=== PATIENT | male | born 1970 | race African-American/Black ===

== ENCOUNTER → 2018-09-09 | Outpatient (CLI) | payer MEDICARE, OTHER ==
[2015-02-03 15:00] VITALS: BP 113/74
[~2018-09-09] MED LIST: IOHEXOL 300 MG/ML 100ML VIAL. IV ONE
--- NOTE | 2018-09-09 10:03 | RAD ---
CT neck with intravenous contrast History: Right posterior neck nodule. Comparison: None. Technique: CT of the neck was performed after the administration of intravenous contrast, 75 mL Omnipaque-300. A BB was placed on the posterior right neck in area of clinical interest. Exposure: One or more of the following individualized dose reduction techniques were utilized for this examination: 1. Automated exposure control 2. Adjustment of the mA and/or kV according to patient size 3. Use of iterative reconstruction technique Findings: Palpable lump corresponds to a fat-containing lesion in the subcutaneous soft tissues just superficial to the posterior neck musculature. Lesion measures 2.4 x 1.7 cm in maximum dimension x 1.4 cm in craniocaudal dimension and is compatible with small lipoma. Major vessels of the neck enhance appropriately. Bilateral parotid and submandibular glands appear symmetric. Thyroid appears diffusely enlarged and there are likely several nodules. Airway is patent. Impression: 1. Palpable lump the posterior right neck corresponds to 2.4 x 1.7 x 1.4 cm lipoma. 2. Multinodular goiter. Electronically signed by: Brendan Elizondo MD (09/09/2018 9:59 AM) [place] [id number]
== END | disposition home or self-care (01) ==
LOC: CT 08:19
PROVIDERS: ATTEND Family Medicine
DX: R22.1 Localized swelling, mass and lump, neck (principal); E04.2 Nontoxic multinodular goiter
CPT/HCPCS: 70491

== ENCOUNTER → 2019-05-07 | Outpatient (CLI) | payer OTHER ==
[2015-02-03 15:00] VITALS: BP 113/74
--- NOTE | 2019-05-07 16:31 | KCIC ---
KNEE RIGHT 3V History: Right knee pain. Pain for 2 weeks.. Review standing images are obtained. Mild narrowing of the medial joint compartment. Small degenerative osteophytes about the knee. Mild enthesopathy at the patella and tibial tubercle. Fullness in the suprapatellar region suggesting joint IMPRESSION: 1. Mild degenerative changes. 2. Joint effusion. Electronically signed by: Brendan Deluca MD (05/07/2019 4:29 PM) [facility]
== END | disposition home or self-care (01) ==
LOC: KCIC 13:30
PROVIDERS: ATTEND Family Medicine
DX: M17.11 Unilateral primary osteoarthritis, right knee (principal); M25.761 Osteophyte, right knee; M25.461 Effusion, right knee; M76.9 Unspecified enthesopathy, lower limb, excluding foot
CPT/HCPCS: 73562

== ENCOUNTER → 2020-01-07 | Outpatient (CLI) | payer MEDICARE, OTHER ==
[2015-02-03 15:00] VITALS: BP 113/74
--- NOTE | 2020-01-07 08:52 | RAD ---
Bilateral lower extremity arterial ultrasound History: Gastrocnemius muscle strain. Possible tendon tear. Findings: Multiple grayscale, color, and duplex spectral analysis sonographic images were acquired of the lower extremity arteries bilaterally. There are no previous similar exams. Complex, hypoechoic fluid collection in the left posterior calf region outside of the gastrocnemius muscle measuring 6.7 cm longitudinal x 4.4 cm transverse x 1.4 cm anteroposterior. Velocities in cm/sec: Left Common femoral artery 140 Profunda femoris artery 49 Proximal SFA 112 Mid SFA 111 Distal SFA 109 Popliteal artery 71 Anterior tibial artery 87 Dorsalis pedis artery 84 Posterior tibial artery 107 Peroneal artery 73 Triphasic flow is noted involving the left lower extremity arterial vasculature. No significant plaque identified involving arterial vasculature. Impression: No hemodynamically significant left lower extremity arterial stenosis. Fluid collection involving the left calf gastrocnemius region. Findings may represent hematoma as result of tear. Correlate clinically determining further assessment. Electronically signed by: Holden Romeo MD (01/07/2020 8:49 AM) [id number]
== END | disposition home or self-care (01) ==
LOC: US 07:08
PROVIDERS: ATTEND Family Medicine
DX: S86.112A Strain of other muscle(s) and tendon(s) of posterior muscle group at lower leg level, left leg, initial encounter (principal); X58.XXXA Exposure to other specified factors, initial encounter; Y93.89 Activity, other specified; Y92.89 Other specified places as the place of occurrence of the external cause; Y99.8 Other external cause status
CPT/HCPCS: 93926

== ENCOUNTER → 2020-06-24 | Outpatient (CLI) | payer MEDICAID, MEDICARE, OTHER ==
[2015-02-03 15:00] VITALS: BP 113/74
--- NOTE | 2020-06-24 12:49 | KCIC ---
EXAM: Left knee, 4 views. HISTORY: Pain. COMPARISON: 05/07/2020 FINDINGS: 4 views of the left knee are obtained. There is left medial compartment joint space narrowing and moderate marginal spurring. There is also left lateral and patellofemoral compartment spurring. There is a suspected intra-articular osteophyte along the anterior tibial plateau. There is a small joint effusion. There is no acute fracture, dislocation or subluxation. IMPRESSION: 1. Moderate medial compartment predominant osteoarthritis of the left knee with a small joint effusion. 2. No acute osseous finding. Electronically signed by: Shameka Hay MD (06/24/2020 12:47 PM) [id number]
== END | disposition home or self-care (01) ==
LOC: KCIC 10:02
PROVIDERS: ATTEND Family Medicine
DX: M17.12 Unilateral primary osteoarthritis, left knee (principal); M25.462 Effusion, left knee
CPT/HCPCS: 73564

== ENCOUNTER → 2021-01-12 | Outpatient (CLI) | payer MEDICARE, OTHER ==
[2015-02-03 15:00] VITALS: BP 113/74
--- NOTE | 2021-01-12 17:04 | KCIC ---
L spine 5 views INDICATION: Acute left-sided low back pain and left sciatica for 2 days. No known injury. COMPARISON: None. FINDINGS: Standing AP, standing bilateral oblique, standing lateral and standing coned-down lateral views of th e lumbar spine were obtained. They show 5 lumbar type vertebrae with a transitional S1. Vertebral body heights are preserved. No ac [place] fracture or aggressive appearing bony lesions are seen. There is underlying multilevel mild lumba r spinal degenerative changes in the disks and facets, resulting in most mild bilateral L5-S1 foramin al narrowing. The soft tissues are unremarkable. Sacroiliac joints and visualized hips are unremarkab le. IMPRESSION: Mild lumbar spinal degenerative changes. No fracture or malalignment. Electronically signed by: Kar Saxena MD (01/12/2021 5:02 PM) [id number]
== END ==
LOC: KCIC 11:12
PROVIDERS: ATTEND Family Medicine
DX: M47.816 Spondylosis without myelopathy or radiculopathy, lumbar region (principal); M48.07 Spinal stenosis, lumbosacral region
CPT/HCPCS: 72110

== ENCOUNTER 2021-03-31 08:27 | Day surgery (SDC) | payer MEDICARE, OTHER ==
[~2021-03-31] VITALS: Ht 177.8 cm; Wt 123.0 kg
[~2021-03-31 08:27] MED LIST changes: +ACETAMINOPHEN 500 MG TABLET PO ONE; +ALBU1.25 NEB; +ALLO300T PO; +CELE200C PO; +FLUT9.9S NS; +HYDR-2763 PO; +HYDROmorphone 2 MG/ML VIAL IVP PRN; -IOHEXOL 300 MG/ML 100ML VIAL. IV ONE; +IV RINGERS,LACTATED 1000ML 1,000 ML IV SCH; +LORA10TA3 PO; +MORPHINE SULFATE 2 MG/ML VIAL. IVP PRN; +MULT-659 PO; +OMEP40CA7 PO; +PRED-220 PO; +PROCHLORPERAZINE 10 MG/2 ML VIAL. IVP PRN; +SPIR25TA5 PO; +VENTOLIN HFA18 GM INH; +ceFAZolin SODIUM 3 GM in IV DEXTROSE 5% 100ML 100 ML IV PRN; +fentaNYL PF VIAL 100 MCG/2 ML VIAL IVP PRN
[2021-03-31] MEDS ORDERED: ACETAMINOPHEN 500 MG TABLET PO ONE (08:30)
[2021-03-31 08:50] VITALS: BP 127/77
[2021-03-31] MEDS ORDERED: fentaNYL PF VIAL 100 MCG/2 ML VIAL ONE (09:13)
[2021-03-31] MEDS ORDERED: LIDOCAINE 2% PF 5 ML VIAL. ONE (09:13)
[2021-03-31] MEDS ORDERED: PROPOFOL 10 MG/ML (20ML) VIAL. IV ONE (09:13)
[2021-03-31] MEDS ORDERED: ROCURONIUM 50 MG/5 ML VIAL. ONE (09:20)
[2021-03-31] MEDS ORDERED: MIDAZOLAM HCL/PF 2 MG/2 ML VIAL. ONE (10:03)
[2021-03-31] MEDS ORDERED: BUPIVACAINE-EPI 0.25% 30 ML VIAL KIT. ONE (10:03)
[2021-03-31] MEDS ORDERED: DEXAMETHASONE SOD PHOS 4 MG/ML VIAL ONE (10:37)
[2021-03-31] MEDS ORDERED: ONDANSETRON PF 4 MG/2 ML VIAL. ONE (10:37)
[2021-03-31] MEDS ORDERED: NEOSTIGMINE METHYLSULFATE 5 MG/5 ML SYRINGE. ONE (10:40)
[2021-03-31] MEDS ORDERED: GLYCOPYRROLATE 1 MG/5 ML VIAL. ONE (10:40)
[2021-03-31] MEDS ORDERED: SEVOFLURANE 61 TO 120 MINUTES. IH ONE (10:47)
--- NOTE | 2021-03-31 11:00 | PDOC4 ---
Operative Note Operative Note Date: March [id number] at 1058 Preoperative diagnosis: Posterior neck mass Postoperative diagnosis: Same Procedure: Excision of posterior neck mass Surgeon: Jonathan Specimen: Neck mass Dictation: Patient is a 50-year-old gentleman is complained of a mass on his posterior neck that is been increasing in size and becoming somewhat painful. Procedure of excision was explained to the patient in detail risk benefits were also discussed including bleeding infection alternatives to this procedure also discussed with patient who seemed to understand and gave a verbal written conse nt to have the procedure performed. Patient was taken to the operating room placed in the supine position general anesthesia was initiated once patient was sleeping abated was repositioned in prone positioning. His posterior neck was prepped and draped usual sterile fashion using ChloraPrep. An area over the mass was injected with quarter percent Marcaine with epinephrine incision was made with a 10 blade scalpel. This was carried down through the subcutaneous tissue using electrocautery right hemostasis the mass was excised appeared to be a lipomatous mass 4 x 4 cm with a 1 cm margin. Specimen was sent to pathology the wound was then closed in 2 layers the deep layer running 3-0 Vicryl and the skin was reapproximated for subcuticular Monocryl Mastisol Steri-Strips and island dressings were applied. Patient was repositioned and in the supine positioning awakened and extubated in the operating room taken to recovery in stable condition all sponge instrument needle counts listed as correct estimated blood loss 5 mL JOHN VALDEZ MD Mar 31, 2021 11:00
--- NOTE | 2021-03-31 11:03 | DISCH ---
DISCHARGE INSTRUCTIONS Condition on Discharge Condition on Discharge: Stable Activity After Discharge Activity Instructions for Disc: Activity as tolerated Other activity instructions: May shower in 24 hours Diet after Discharge Diet after Discharge: Regular Contacting the DRYolie after DC Call your doctor for: If your condition worsens Follow-Up Follow up with: Dr. Valdez in 2 weeks JOHN VALDEZ MD Mar 31, 2021 11:03
[2021-03-31] MEDS ORDERED: HYDR-2759 PO (11:27)
[2021-03-31] MEDS ORDERED: HYDROcodone/APAP 5/325MG 1 TAB TABLET PO ONE ×2 (11:30)
[2021-03-31 11:55] VITALS: BP 128/81
--- NOTE | 2021-04-04 19:18 | PATHOLOGY ---
[facility] Accession Number: [id number] . 01 Material submitted: . neck - NECK MASS . 01 Clinical history: . EXCISION RIGHT POSTERIOR NECK MASS LIPOMA . 02 Diagnosis: Segments of adipose tissue, right posterior neck mass excision: - Lipoma. (JPM/db; 04/04/2021) LBQ 04/04/2021 1124 Local . 02 Electronically signed: . Richmond Boswell MD, Pathologist NPI- [id number] . 01 Gross description: . Fixative: Formalin Labeled: Neck mass Specimen received: Fragmented Dimensions: in aggregate 7.1 x 4.3 x 2.4 cm External surface: Roughened, nick yellow lobular Cut surface: Nick yellow lobular without hemorrhage or necrosis grossly identified . Respiratory Therapy Instructor sections are submitted in A1-A3. ([facility]; 04/01/2021) GZA/GZA 04/01/2021 0915 Local . 02 Pathologist provided ICD-10: D17.0 . 02 CPT . 009706 Specimen Comment: A courtesy copy of this report has been sent to [phone], [phone] Specimen Comment: [phone] Specimen Comment: Report sent to / DR LANE Performed at: 01 [facility] [address], [place], [place] [id number] MD Barry Rausch MD Phone: [phone] Performed at: 02 [facility] [place] [address] [place], [place] [id number] MD Richmond Boswell MD Phone: [phone]
== END 2021-03-31 12:25 | disposition home or self-care (01) ==
LOC: SURG 08:27
PROVIDERS: ATTEND Surgery
DX: R22.1 Localized swelling, mass and lump, neck (principal); D17.0 Benign lipomatous neoplasm of skin and subcutaneous tissue of head, face and neck; I10 Essential (primary) hypertension; J45.909 Unspecified asthma, uncomplicated; G47.30 Sleep apnea, unspecified; M19.90 Unspecified osteoarthritis, unspecified site; Z79.899 Other long term (current) drug therapy; Z98.890 Other specified postprocedural states
CPT/HCPCS: 21552; 88304; A4364; A4930; A6402; J1100; J2250; J2405; J2704; J2710; J3010; J3490; A4452

== ENCOUNTER → 2021-06-30 | Outpatient (CLI) | payer MEDICARE, OTHER ==
[~2021-06-30] MED LIST changes: -ACETAMINOPHEN 500 MG TABLET PO ONE; +HYDR-2759 PO; -HYDROmorphone 2 MG/ML VIAL IVP PRN; -IV RINGERS,LACTATED 1000ML 1,000 ML IV SCH; -MORPHINE SULFATE 2 MG/ML VIAL. IVP PRN; -PROCHLORPERAZINE 10 MG/2 ML VIAL. IVP PRN; -ceFAZolin SODIUM 3 GM in IV DEXTROSE 5% 100ML 100 ML IV PRN; -fentaNYL PF VIAL 100 MCG/2 ML VIAL IVP PRN
--- NOTE | 2021-06-30 16:02 | RAD ---
EXAM: Bilateral lower extremity venous Doppler sonogram. HISTORY: Pain and swelling. TECHNIQUE: Vazquez scale and color Doppler sonographic evaluation of the bilateral lower extremity veins with spectral waveform analysis was performed. FINDINGS: There is normal color flow, normal compressibility and there are normal spectral waveforms in the common femoral, superficial femoral, popliteal, posterior tibial and greater saphenous veins. IMPRESSION: No Doppler evidence of lower extremity deep venous thrombosis. Electronically signed by: Shameka Hay MD (06/30/2021 3:59 PM) [id number]
== END ==
LOC: US 15:06
PROVIDERS: ATTEND Physical Medicine & Rehabilitation
DX: M79.604 Pain in right leg (principal); M79.605 Pain in left leg; M79.89 Other specified soft tissue disorders
CPT/HCPCS: 93970

== ENCOUNTER → 2021-07-05 | Outpatient (CLI) | payer MEDICARE, OTHER ==
--- NOTE | 2021-07-05 14:00 | KCIC ---
Examination: MRI of the left shoulder without contrast HISTORY: Left shoulder pain COMPARISON: None available TECHNIQUE: Multiplanar, multisequence MR imaging of the left shoulder performed. Exposure: One or more of the following individualized dose reduction techniques were utilized for magdalena s examination: 1. Automated exposure control 2. Adjustment of the mA and/or kV according to patient size 3. Use of iterative reconstruction technique FINDINGS: The long head of the biceps tendon within the bicipital groove. The attachment of the long head the biceps tendon to the superior labral anchor grossly appears intact. The attachment of subscapularis t endon grossly appears intact. Moderate increased T2 signal with the Hill-Sachs lesion identified in t he posterior lateral humerus head likely recent dislocation. Moderate increased T2 signal identified in the supraspinatus and infraspinatus tendons likely tendino sis. The muscle bulk grossly appears unremarkable Small amount of fluid identified in subacromial subdeltoid bursa. There is increased signal with tear of the inferior glenohumeral ligament at its glenoid attachment with possible tiny darrell of bone fro m the anterior inferior glenoid likely bony Bankart with surrounding increased T2 signal/edema. The v isualized labrum demonstrates signal identified in the superior labrum extending anteriorly and poste riorly Small shoulder joint effusion. IMPRESSION: 1. Tear of the inferior glenohumeral ligament at its glenoid attachment with possible tiny darrell of bone from the anterior inferior glenoid likely bony Bankart with surrounding increased T2 signal/jony a. 2. Moderate increased T2 signal with the Hill-Sachs lesion identified in the posterior lateral humer us head likely recent dislocation. 3. Moderate tendinosis of the supraspinatus and infraspinatus tendons. Small amount of fluid identif ied in subacromial subdeltoid bursa. 4. Tear of the superior labrum extending anteriorly and posteriorly. Electronically signed by: Gaston Hernandez MD (07/05/2021 12:40 PM) [id number]
== END ==
LOC: KCIC MRI 10:44
PROVIDERS: ATTEND Physical Medicine & Rehabilitation
DX: S43.432A Superior glenoid labrum lesion of left shoulder, initial encounter (principal); M25.412 Effusion, left shoulder; M75.102 Unspecified rotator cuff tear or rupture of left shoulder, not specified as traumatic; X58.XXXA Exposure to other specified factors, initial encounter; Y93.89 Activity, other specified; Y92.89 Other specified places as the place of occurrence of the external cause; Y99.8 Other external cause status
CPT/HCPCS: 73221

== ENCOUNTER → 2021-07-14 | Outpatient (CLI) | payer MEDICARE, OTHER ==
--- NOTE | 2021-07-15 11:43 | KCIC ---
EXAMINATION: MRI LEFT LOWER EXTREMITY JOINT WITHOUT INDICATIONS: Known hamstrings tear. Medial and lateral knee pain and swelling. TECHNIQUE: Multiplanar multisequence MRI of the left knee was obtained without contrast. COMPARISON: None. FINDINGS: MENISCI: There is a complex tear of the medial meniscus extending from the near the posterior root-h orn junction through the body. There is complete extrusion of the torn meniscal body tissue into the medial recess. The lateral meniscus is intact. LIGAMENTS: The anterior and posterior cruciate ligaments are intact. The medial collateral ligament and lateral collateral ligament complex are intact. EXTENSOR MECHANISM: The quadriceps and patellar tendons are intact. Fat pads are normal. Retinacula are intact. BONES AND CARTILAGE: No acute fracture. Alignment is normal. There is deep partial thickness cartila ge loss in the weightbearing medial femoral condyle with small area of full-thickness cartilage loss. Deep partial-thickness cartilage loss throughout most of the medial tibial plateau. There is milder partial thickness cartilage loss in the lateral compartment. There is deep partial thickness cartilag e loss in the inferior trochlea and mild superficial partial-thickness cartilage loss in the patella. There are tricompartmental osteophytes. OTHER: There is a small joint effusion. Suspect several small intra-articular bodies including two 3 -4 mm probable intra-articular bodies posterior to the PCL. Mild edema along the pes anserine tendons . There is mild partial tearing in the semitendinosis tendon with surrounding edema in the distal thi gh, at the upper edge of the imaging. Mild intramuscular edema in the hamstrings musculature in the t high at the upper edge of imaging. There is a prominent lymph node in the along the posterior distal femur, likely reactive. No significant Melo cyst. There is mild subcutaneous edema anteriorly. IMPRESSION: 1. Complex tear of the medial meniscus extending from near the posterior root-horn junction through t he body, with complete extrusion of the torn meniscal body tissue into the medial recess. 2. Incompletely visualized mild partial tear of the semitendinosis tendon and mild edema in the hamst rings musculature in the thigh, at the upper edge of the imaging, consistent with reported history of hamstrings tendon tear. The hamstrings tendons are intact distally. There is mild edema extending al patricia the pes anserine tendons. 3. Tricompartmental cartilage loss, greatest in medial compartment where there is deep partial thickn ess cartilage loss and a small amount of full-thickness cartilage loss. 4. Suspect several small intra-articular bodies. 5. Mild subcutaneous edema, greatest anteriorly. Electronically signed by: Gala Noland MD (07/15/2021 11:41 AM) [id number]
== END ==
LOC: KCIC MRI 12:23
PROVIDERS: ATTEND Orthopaedic Surgery
DX: S83.232A Complex tear of medial meniscus, current injury, left knee, initial encounter (principal); S76.912A Strain of unspecified muscles, fascia and tendons at thigh level, left thigh, initial encounter; S76.319A Strain of muscle, fascia and tendon of the posterior muscle group at thigh level, unspecified thigh, initial encounter; R60.9 Edema, unspecified; X58.XXXA Exposure to other specified factors, initial encounter; Y93.89 Activity, other specified; Y92.89 Other specified places as the place of occurrence of the external cause; Y99.8 Other external cause status
CPT/HCPCS: 73721

== ENCOUNTER → 2021-08-26 | Outpatient (CLI) | payer MEDICARE, OTHER ==
[~2021-08-26] MED LIST changes: +ACET325T9 PO; +BUDE10.2 IH; +PHEN37.59 PO; +TIZA-75 PO
--- NOTE | 2021-08-26 10:15 | KCIC ---
Exam: MRI lumbar spine without IV contrast CLINICAL INDICATION: Reason: LUMBAR BACK PAIN / Spl. Instructions: / History: Pt fell in May. Persis tant LBP since the fall. COMPARISON: None available. TECHNIQUE: Multiplanar, multisequence MR imaging of the lumbar spine was performed without IV contras t. Examination limited by suboptimal scan plane and motion artifact. FINDINGS: Vertebral body heights are preserved. No acute fracture. Diffuse decreased T1 marrow signal, remains borderline hyperintense to the disc. A few T1/T2 hyperintense foci, hemangiomas. There is a backgroun d of congenital canal narrowing from L1-L5. Mild L3-4 and mild L5-S1 disc height loss with associated disc desiccation. Normal alignment of the lumbar spine. No spondylolisthesis. The conus medullaris is normal in morphology and terminates at L1-L2. At L2-L3: Evaluation of this level limited given suboptimal scan plane. Generalized disc bulge result s in trace flattening of the ventral thecal sac. No neural foraminal narrowing. At L3-L4: Generalized disc bulge superimposed on congenital canal narrowing results in moderate flat tening ventral thecal sac, measuring 9 mm in AP dimension, without neural foraminal narrowing. At L4-L5: Generalized disc bulge with ligamentum flavum hypertrophy without thecal sac deformity or neural foraminal narrowing. At L5-S1: Generalized disc bulge, eccentric to the left superimposed on congenital canal stenosis r esults in moderate to severe thecal sac narrowing measuring 6 mm in AP dimension with moderate bilate ral neural foraminal narrowing. Right lower pole renal cyst. IMPRESSION: 1. 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 Full details of degenerative disc disease as above although mo st prominent at L3-4 and L5-S1 with moderate thecal sac narrowing at L3-4 and moderate to severe narr owing at L5-S1. 2. Diffuse decreased T1 marrow signal likely from red marrow reconversion and is often seen with pos sible smoking, anemia or obesity. Electronically signed by: Jacques Cornelius MD (08/26/2021 10:13 AM) [email or web address]
== END ==
LOC: KCIC MRI 08:35
PROVIDERS: ATTEND Physician Assistant
DX: M47.27 Other spondylosis with radiculopathy, lumbosacral region (principal); M51.37 Other intervertebral disc degeneration, lumbosacral region; N28.1 Cyst of kidney, acquired
CPT/HCPCS: 72148

== ENCOUNTER 2021-08-29 07:47 | Day surgery (SDC) | payer MEDICARE, OTHER ==
[~2021-08-29] VITALS: Ht 177.8 cm; Wt 110.0 kg
[~2021-08-29 07:47] MED LIST changes: -ACET325T9 PO; +BUPIVACAINE-EPI 0.25% 30 ML VIAL KIT. ONE; +HYDROmorphone 2 MG/ML VIAL IVP PRN; +IV RINGERS,LACTATED 1000ML 1,000 ML IV SCH; +PROCHLORPERAZINE 10 MG/2 ML VIAL. IVP PRN; +fentaNYL PF VIAL 100 MCG/2 ML VIAL IVP PRN
[2021-08-29 08:07] VITALS: BP 112/76
[2021-08-29] MEDS ORDERED: PROPOFOL 10 MG/ML (20ML) VIAL. IV ONE (08:30)
[2021-08-29] MEDS ORDERED: fentaNYL PF VIAL 100 MCG/2 ML VIAL ONE ×2 (08:30→10:51)
[2021-08-29] MEDS ORDERED: ONDANSETRON PF 4 MG/2 ML VIAL. ONE (08:30)
[2021-08-29] MEDS ORDERED: FAMOTIDINE 20 MG/2 ML VIAL ONE (08:30)
[2021-08-29] MEDS ORDERED: DEXAMETHASONE SOD PHOS 4 MG/ML VIAL ONE (08:30)
[2021-08-29] MEDS ORDERED: MIDAZOLAM HCL/PF 2 MG/2 ML VIAL. ONE (08:30)
[2021-08-29] MEDS ORDERED: LIDOCAINE 2% PF 5 ML VIAL. ONE (08:31)
--- NOTE | 2021-08-29 09:59 | PDOC4 ---
OPERATIVE NOTE Date: Date: Aug 29, 2021 Pre-Op Diagnosis: Medial meniscal tear degenerative joint disease left knee Post-Op Diagnosis: Medial meniscal tear lateral meniscal tear degenerative joint disease with multiple loose bodies left knee Procedure Performed: Left knee arthroscopy with partial medial meniscectomy partial lateral meniscectomy joint debridement removal of multiple loose bodies Surgeon: Wendy Bowen Anesthesia Type: General Blood Loss: 20 cc Specimans Obtained: None Findings: See dictation Complications: None LAUREN BOWEN Jr. DO Aug 29, 2021 09:59
[2021-08-29] MEDS ORDERED: ACET325T9 PO (10:02)
--- NOTE | 2021-08-29 10:11 | OP ---
DATE OF SURGERY: 08/29/2021 PREOPERATIVE DIAGNOSES: Medial meniscal tear with degenerative joint disease and loose bodies, left knee. POSTOPERATIVE DIAGNOSES: Medial meniscal tear, lateral meniscal tear, degenerative joint disease, left knee with multiple loose bodies. SURGEON: Sedrick Villela Jr, DO CAMPUS COORDINATOR: Zhang Greenwood. ANESTHESIA: General. COMPLICATIONS: None. ESTIMATED BLOOD LOSS: 20 mL. Standard dictation for certified first assistant. DESCRIPTION OF PROCEDURE: The patient was taken to the operative suite, given general anesthetic. Left lower extremity was placed in a knee eubanks, prepped and draped in a sterile fashion. Inferomedial and inferolateral portals were established. Knee was insufflated with saline. Visualization of the patellofemoral joint noted there to be significant degenerative changes on the patella undersurface, but especially the femoral sulcus. The undersurface of the patella had some grade 3 changes on the middle facet and the lateral facet with significant changes noted on the femoral sulcus grade 3, large area of grade 4. This was unstable. Therefore, this was debrided completely at this point. Scope was then taken into the medial compartment. There were noted to be some loose bodies, which were removed with the shaver and suction. The debridement continued along the area of the medial compartment, which had a large area of grade 3 and 4 changes, large areas of grade 4 changes along the entire femoral side of the joint as well as two separate spots in the anterior one-third and the posterior one third of the tibial side of the joint as well. The debridement was undertaken to this back to stable tissue. No loose pieces were noted. There was noted to be a large tear of the posterior horn of the meniscus. Using shaver, this was debrided back to stable tissue. The midsubstance also was noted to have another very large complex tear. This was also debrided with the shaver back to stable tissue and then probing of this noted this to be very stable. Scope was then taken into the intercondylar region. The ACL and the PCL were visualized and probed and noted to be stable. Large osteophytes were noted along this anterior aspect of the tibial insertion as well as along the area of the ACL. Scope was then taken to the lateral compartment. There was noted to be a tear of the anterior horn of the lateral meniscus. A partial lateral meniscectomy was therefore undertaken. This was debrided back to stable tissue. The tibial side of the joint and the femoral side of the joint were softened, however, completely intact at this point with no significant lesions. This was then thoroughly irrigated, reinspected. No further loose bodies or any other issues were noted. Therefore, this was thoroughly irrigated and suctioned dry. All instruments were removed. Local was placed in the portal sites. The wounds were then reapproximated. Sterile dressing was applied. The patient was then taken from the operative bed to the postoperative bed, taken to the PACU in stable condition. LEONARDO DR: Edison TID: [id number]
--- NOTE | 2021-08-29 10:16 | DISCH ---
DISCHARGE INSTRUCTIONS Condition on Discharge Condition on Discharge: Stable Activity After Discharge Activity Instructions for Disc: Activity as tolerated, Avoid exertion Lifting Instructions after Dis: Do not lift >10 pounds Driving Instructions after Dis: Do not drive today Weight Bearing Status after Di: Full weight bearing Diet after Discharge Diet after Discharge: Regular Wound Incision Care Wound/Incision Care: Ice to area for comfort, Keep wound elevated Other wound/incision instructi: May change dressings postoperative day #[address] after DC Call your doctor for: If your condition worsens Follow-Up Follow up with: 10 to 14 days LAUREN BOWEN Jr. DO Aug 29, 2021 10:16
[2021-08-29] MEDS ORDERED: MORPHINE SULFATE 2 MG/ML INJ. ONE (10:33)
[2021-08-29] MEDS: MORPHINE SULFATE 2 MG/ML INJ. IVP PRN ×2 (10:43→10:55)
[2021-08-29] MEDS ORDERED: HYDROcodone/APAP 7.5/325MG 1 TAB TABLET ONE (10:52)
[2021-08-29] MEDS: fentaNYL PF VIAL 100 MCG/2 ML VIAL IVP PRN ×2 (10:55→11:03)
[2021-08-29] MEDS ORDERED: HYDROcodone/APAP 7.5/325MG 1 TAB TABLET PO ONE (11:00)
[2021-08-29 11:19] VITALS: BP 123/76
== END 2021-08-29 12:20 | disposition home or self-care (01) ==
LOC: SURG 07:47
PROVIDERS: ATTEND Orthopaedic Surgery
DX: S83.232A Complex tear of medial meniscus, current injury, left knee, initial encounter (principal); S83.282A Other tear of lateral meniscus, current injury, left knee, initial encounter; I10 Essential (primary) hypertension; J45.909 Unspecified asthma, uncomplicated; G47.30 Sleep apnea, unspecified; M23.322 Other meniscus derangements, posterior horn of medial meniscus, left knee; M23.42 Loose body in knee, left knee; M17.12 Unilateral primary osteoarthritis, left knee; K21.9 Gastro-esophageal reflux disease without esophagitis; Z79.899 Other long term (current) drug therapy; Z98.890 Other specified postprocedural states; X58.XXXA Exposure to other specified factors, initial encounter; Y93.89 Activity, other specified; Y92.89 Other specified places as the place of occurrence of the external cause; Y99.8 Other external cause status
CPT/HCPCS: 29880; A4930; J0690; J1100; J2250; J2270; J2405; J2704; J3010; J3490

== ENCOUNTER → 2021-09-01 | Outpatient (CLI) | payer MEDICARE, OTHER ==
[2021-08-29 11:19] VITALS: BP 123/76
[~2021-09-01] MED LIST changes: +ACET325T9 PO; -BUPIVACAINE-EPI 0.25% 30 ML VIAL KIT. ONE; -HYDROmorphone 2 MG/ML VIAL IVP PRN; -IV RINGERS,LACTATED 1000ML 1,000 ML IV SCH; -PROCHLORPERAZINE 10 MG/2 ML VIAL. IVP PRN; -fentaNYL PF VIAL 100 MCG/2 ML VIAL IVP PRN
--- NOTE | 2021-09-01 11:13 | KCIC ---
STUDY: MRI of the right knee without contrast INDICATION: Right knee pain. COMPARISON: No prior MRI of the right knee. TECHNIQUE: Multiplanar MR imaging of the right knee performed without the use of intravenous or intra -articular contrast. FINDINGS: Menisci: Irregular free edge tearing of the medial meniscus from the anterior body segment through th e posterior horn with some extension of tearing into the substance of the meniscus such as at the pos terior horn. A small partially detached piece of meniscal tissue originating from the posterior horn is seen on image 19 series 3. The lateral meniscus is intact. Cruciate ligaments: Intact. Collateral ligaments: Intact. Tendons: No tendon tear or advanced tendinosis. Cartilage: Patellofemoral: High-grade/full-thickness chondral loss along portions of the trochlea at its lower h jail. Multifocal patellar partial thickness chondrosis. Lateral compartment: Mild superficial chondrosis at a few locations. Medial compartment: Chondrosis at both the weightbearing and posterior nonweightbearing aspects which is partly high-grade mainly at the weightbearing medial femoral condyle. Bones: Subchondral edema/cystic change at the trochlea. Osteophytic proliferation at the posterior li p of the medial tibial plateau with tiny associated intraosseous ganglion. Small joint line osteophyt es larger medially. Miscellaneous: No significant joint effusion. Tiny amount of fluid within the semimembranosus-medial gastrocnemius bursa and very mild pes anserine bursitis. Heterogeneous intensity thickening and trace fluid signal superficial to the patella with subjacent mild chronic osseous proliferation. IMPRESSION: 1. Mildly complex tearing of the medial meniscus along the body segment and posterior horn, as descr ibed above, with a small fragment of partially detached meniscal tissue off the posterior horn as see n on image 19 series 3 and saved as a merchant image. The lateral meniscus is intact as are the cruciate a nd collateral ligaments. 2. 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 Subchondral edema/cystic change at the trochlea. 3. Mild chronic prepatellar bursitis. Very mild pes anserine bursitis. Electronically signed by: BARBIE SPENCER MD (09/01/2021 11:11 AM) [id number]
== END ==
LOC: KCIC MRI 09:52
PROVIDERS: ATTEND Physician Assistant
DX: S83.241A Other tear of medial meniscus, current injury, right knee, initial encounter (principal); S83.231A Complex tear of medial meniscus, current injury, right knee, initial encounter; M23.321 Other meniscus derangements, posterior horn of medial meniscus, right knee; M25.761 Osteophyte, right knee; M76.41 Tibial collateral bursitis [Pellegrini-Stieda], right leg; M70.41 Prepatellar bursitis, right knee; X58.XXXA Exposure to other specified factors, initial encounter; Y93.89 Activity, other specified; Y92.89 Other specified places as the place of occurrence of the external cause; Y99.8 Other external cause status
CPT/HCPCS: 73721

== ENCOUNTER → 2022-02-14 | Outpatient (CLI) | payer MEDICARE, OTHER ==
--- NOTE | 2022-02-14 10:51 | RAD ---
Bilateral lower extremity venous real time grayscale, color and spectral duplex ultrasound was perfor med. History: Reason: LT LEG ULCER/PAIN / Spl. Instructions: / History: Comparison: None. Findings: The common femoral, femoral and popliteal veins demonstrate anechoic lumina, full compressibility, an d cephalad color doppler flow. The bilateral posterior tibial veins are unremarkable. Impression: No evidence of DVT in either lower extremity. Electronically signed by: Bertin Vila MD (02/14/2022 10:48 AM) [id number]
== END ==
LOC: US 08:53
PROVIDERS: ATTEND Family Medicine
DX: I87.2 Venous insufficiency (chronic) (peripheral) (principal); L97.509 Non-pressure chronic ulcer of other part of unspecified foot with unspecified severity
CPT/HCPCS: 93970

== ENCOUNTER → 2022-02-15 | Outpatient (CLI) | payer MEDICARE, OTHER ==
--- NOTE | 2022-02-15 08:38 | RAD ---
02/15/2022 Bilateral lower extremity arterial duplex ultrasound Indication: Peripheral vascular disease. Comparison: None. Procedure: Arterial 2D and duplex images are obtained of the lower extremity arteries. Findings: Normal triphasic waveforms are present in the common femoral artery, superficial femoral ar sin, popliteal artery, anterior tibial artery, posterior tibial artery and dorsalis pedis arteries b ilaterally. No major arterial occlusion is identified. No other focal sonographic abnormality is seen . IMPRESSION: No sonographic evidence of hemodynamically significant stenosis involving the major arter ies of the bilateral lower extremities Electronically signed by: Usama Ramirez MD (02/15/2022 8:36 AM) [id number]
== END ==
LOC: US 07:06
PROVIDERS: ATTEND Family Medicine
DX: I73.9 Peripheral vascular disease, unspecified (principal)
CPT/HCPCS: 93925